=== PATIENT | female | born 1930 ===

== ENCOUNTER 2017-01-09 11:06 | Emergency (ER) | payer MEDICAID ==
[2017-01-09 11:29] VITALS: BMI 26.6
[2017-01-09] MEDS ORDERED: Iohexol 240 (50 ml) PO ONE (12:06)
[2017-01-09 12:38] LABS: BASO % 0.2 % (0.0-2.0); EOS # 0.1 K/uL (0.0-0.7); EOS % 1.8 % (0.0-4.0); HEMATOCRIT 40.8 % (34.0-47.0); LYMPH # 1.4 K/uL (1.0-4.3); LYMPH % 25.9 % (20.0-40.0); MEAN CELL VOLUME 92.8 fl (81.0-99.0); MEAN CORPUSCULAR HGB CONC 33.4 g/dL (33.0-37.0); MEAN PLATELET VOLUME 7.7 fl (7.2-11.7); MONO # 0.5 K/uL (0.0-0.8); MONO % 8.5 % (0.0-10.0); NEUT # 3.5 K/uL (1.8-7.0); NEUT % 63.6 % (50.0-75.0); NRBC % 0.1 % (0.0-0.0); RED CELL DISTRIBUTION WIDTH 13.6 % (11.5-14.5); WHITE BLOOD COUNT 5.4 K/uL (4.8-10.8)
[2017-01-09 12:47] LABS: ALB/GLOB RATIO 1.2 (1.0-2.1); ALKALINE PHOSPHATASE 98 U/L (38-126); ALT/SGPT 36 U/L (9-52); AST/SGOT 38 U/L (14-36); BILIRUBIN,TOTAL 0.8 mg/dl (0.2-1.3); BLOOD UREA NITROGEN 16 mg/dl (7-17); CALCIUM 9.3 mg/dL (8.4-10.2); CARBON DIOXIDE 28 mmol/L (22-30); CHLORIDE 102 mmol/L (98-107); GFR AFRICAN-AMERICAN > 60; GLUCOSE,RANDOM 98 mg/dL (65-105); LIPASE 108 U/L (23-300); POTASSIUM 3.8 MMOL/L (3.6-5.0); SODIUM 144 mmol/l (132-148); TOTAL PROTEIN 7.3 G/DL (6.3-8.2)
[2017-01-09 12:49] LABS: RBC URINE 1 /hpf (0-3); URINE BILIRUBIN NEGATIVE (NEGATIVE); URINE BLOOD NEGATIVE (NEGATIVE); URINE COLOR YELLOW (YELLOW); URINE GLUCOSE (UA) NEG (Normal); URINE KETONE NEGATIVE (NEGATIVE); URINE LEUKOCYTE ESTERASE TRACE Leu/uL (Negative); URINE PROTEIN NEGATIVE (NEGATIVE); URINE UROBILINOGEN 0.2-1.0 mg/dL (0.2-1.0); WBC URINE < 1 /hpf (0-5)
--- NOTE | 2017-01-09 13:15 | ED PDOC ---
HPI: General Adult Time Seen by Provider: 01/09/17 11:29 Chief Complaint (Nursing): Abdominal Pain Chief Complaint (Provider): abdominal pain History Per: Patient History/Exam Limitations: no limitations Additional Complaint(s): 86yo female complaining of 3 months of abdominal pain sometimes on right, sometimes on left, with foul smelling urine. She has not been evaluated for it but has been taking Motrin to help with the pain. She also has back pain that radiates to the legs which is chronic for her. She has been sad due to the of her child a few months ago. Also [place]. Able to walk, no leg weakness, no saddle anesthesia, no incontinence, chest pain, or fever. 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 Past Medical History Vital Signs: Last Vital Signs Temp 98.1 F 01/09/17 19:32 Pulse 70 01/09/17 19:32 Resp 18 01/09/17 19:32 BP 126/70 01/09/17 19:32 Pulse Ox 98 01/09/17 19:50 - Family History Family History: States: No Known Family Hx - Home Medications Home Medications: Ambulatory Orders Medication Instructions Recorded Acetaminophen [Tylenol Extra 1,000 mg PO TID #16 tablet 01/09/17 Strength] Nitrofurantoin Macrocrystals 100 mg PO BID #10 cap 01/09/17 [Macrobid] - Allergies Allergies/Adverse Reactions: Allergies Allergy/AdvReac Type Severity Reaction Status Date / Time No Known Allergies Allergy Verified 01/09/17 11:29 Review of Systems ROS Statement: Except As Marked, All Systems Reviewed And Found Negative Constitutional: Negative for: Fever Cardiovascular: Negative for: Chest Pain Gastrointestinal: Positive for: Abdominal Pain Genitourinary Female: Positive for: Other (foul urine). Negative for: Dysuria, Incontinence Musculoskeletal: Positive for: Back Pain Physical Exam - Reviewed Nursing Documentation Reviewed: Yes Vital Signs Reviewed: Yes - Physical Exam Appears: Positive for: Well, Non-toxic, No Acute Distress Head Exam: Positive for: ATRAUMATIC, NORMAL INSPECTION, NORMOCEPHALIC Skin: Positive for: Warm, Dry Eye Exam: Positive for: EOMI, PERRL Cardiovascular/Chest: Positive for: Regular Rate, Rhythm Respiratory: Positive for: Normal Breath Sounds. Negative for: Rales, Rhonchi, Wheezing Gastrointestinal/Abdominal: Positive for: Soft, Tenderness (diffuse abdominal) Pelvic Exam: Positive for: External Exam Normal, Speculum Exam Normal. Negative for: Blood, Lesions, Mass, Other (no discharge; Nano RN in for exam) Back: Positive for: R CVA Tenderness. Negative for: L CVA Tenderness Extremity: Positive for: Normal ROM Neurologic/Psych: Positive for: Alert, Oriented. Negative for: Motor/Sensory Deficits - Laboratory Results Result Diagrams: 01/09/17 12:30 01/09/17 12:30 - ECG ECG: Positive for: Interpreted By Me, Viewed By Me ECG Rhythm: Positive for: Normal QRS, Normal ST Segment, Sinus Rhythm (72). Negative for: ST/T Changes O2 Sat by Pulse Oximetry: 98 (RA) Pulse Ox Interpretation: Normal Medical Decision Making Medical Decision Makin Impression: rule out pyelonephritis, diverticulitis, colitis. Plan: -EKG -CT abd/pel -labs -CXR -Tylenol -reassess EXAM: CT Abdomen and Pelvis With Intravenous Contrast. CLINICAL HISTORY: 86 years old, female; Pain; Abdominal pain; Localized; Right; Additional info: Abdominal pain, right TECHNIQUE: Axial computed tomography images of the abdomen and pelvis with intravenous contrast. This CT exam was performed using one or more of the following dose reduction techniques : automated exposure control, adjustment of the mA and/or kV according to patient size, and/ or use of iterative reconstruction technique. CONTRAST: 95 mL of fgkg718 administered intravenously. EXAM DATE/TIME: 01/09/2017 12:06 PM COMPARISON: No relevant prior studies available. FINDINGS: Lower thorax: Bibasilar atelectasis. Moderate sized hiatal hernia. ABDOMEN: Liver: Unremarkable. No mass. Gallbladder and bile ducts: Unremarkable. No calcified stones. No ductal dilation. Pancreas: Unremarkable. No mass. No ductal dilation. Spleen: Unremarkable. No splenomegaly. Adrenals: Unremarkable. No mass. Kidneys and ureters: Bilateral renal cysts. No hydronephrosis. Stomach and bowel: No bowel obstruction or inflammation. Duodenal diverticulum. No mucosal thickening. Appendix: Normal appendix. PELVIS: Bladder: Unremarkable. No mass. Reproductive: Unremarkable as visualized. ABDOMEN and PELVIS: Intraperitoneal space: Unremarkable. No free air. No significant fluid collection. Bones/joints: No acute fracture. No dislocation. Soft tissues: Unremarkable. Vasculature: Unremarkable. No abdominal aortic aneurysm. Lymph nodes: Unremarkable. No enlarged lymph nodes. IMPRESSION: No acute findings. Thank you for allowing us to participate in the care of your patient. Dictated and Authenticated by: Bubba Taylor MD 01/09/2017 6:09 PM Eastern Time ([place] & [place]) labs unremarkable UA negative, UC sent CT as above. she is feeling better discussed finding with her and daughter will treat for dysuria return information discussed, follow up discussed. Disposition - Clinical Impression Clinical Impression: Abdominal discomfort, Dysuria, Back pain - Patient ED Disposition Is Patient to be Admitted: No Counseled Patient/Family Regarding: Studies Performed, Diagnosis, Need For Followup, Rx Given - Disposition Referrals: [facility] [Outside] Disposition: Routine/Home Disposition Time: 19:20 Condition: IMPROVED Prescriptions: Nitrofurantoin Macrocrystals [Macrobid] 100 mg PO BID #10 cap Acetaminophen [Tylenol Extra Strength] 1,000 mg PO TID #16 tablet Instructions: Back Pain (ED), Dysuria (ED) Print Language: LUXEMBOURGER Additional Comments - Additional Comments Additional Comments: Scribe Attestation Documented by Igor Fonseca, acting as a scribe for Christopher Lagunas PA-C. Provider Scribe Attestation All medical record entries made by the Scribe were at my direction and personally dictated by me. I have reviewed the chart and agree that the record accurately reflects my personal performance of the history, physical exam, medical decision making, and the department course for this patient. I have also personally directed, reviewed, and agree with the discharge instructions and disposition.
[2017-01-09] MEDS ORDERED: Iohexol 240 (50 ml) ONE (14:47)
--- NOTE | 2017-01-09 15:33 | RAD ---
HISTORY: abodminal pain COMPARISON: No prior. TECHNIQUE: Chest PA and lateral FINDINGS: LUNGS: No active pulmonary disease. PLEURA: No significant pleural effusion identified. No pneumothorax apparent. CARDIOVASCULAR: Normal. OSSEOUS STRUCTURES: No significant abnormalities. VISUALIZED UPPER ABDOMEN: Normal. OTHER FINDINGS: None. IMPRESSION: No active disease.
[2017-01-09] MEDS ORDERED: Iohexol 300 100 ML IJ ONE (17:01)
[2017-01-09] MEDS ORDERED: Sodium Chloride 0.9% 50 ML IV ONE (17:01)
[2017-01-09 19:33] VITALS: BP 126/70; PULSE 70; RESP 18; TEMP 98.1
[2017-01-09 19:37] VITALS: O2SAT 98
--- NOTE | 2017-01-10 11:31 | CT ---
PROCEDURE: CT Abdomen and Pelvis with contrast HISTORY: Right abdominal pain COMPARISON: None. TECHNIQUE: Helical CT scan of the abdomen and pelvis was performed after intravenous administration of contrast. Oral contrast was administered. Coronal and sagittal reformatted images were obtained. Contrast dose: 95 cc Omnipaque 350 Radiation dose: Total exam DLP = 449.28 mGy-cm. FINDINGS: LOWER THORAX: There is bibasilar subsegmental atelectasis. LIVER: The liver is normal in size and there is homogeneous enhancement. No gross lesion or ductal dilatation. GALLBLADDER AND BILE DUCTS: There are no calcified gallstones. PANCREAS: The pancreas is normal in size and there is homogeneous enhancement. No gross lesion or ductal dilatation. SPLEEN: The spleen is normal in size without focal lesion. ADRENALS: Both adrenal glands are normal in size without discrete nodule. No mass. KIDNEYS AND URETERS: Both kidneys are normal in size and there is homogeneous enhancement without focal mass or hydronephrosis. There are small simple cysts in both kidneys. VASCULATURE: Normal in appearance. There atherosclerotic aortoiliac calcifications. There is no aortic aneurysm. BOWEL: The small bowel loops are normal in caliber. There is colonic diverticulosis without CT evidence for acute diverticulitis. APPENDIX: No inflammatory changes in the right lower quadrant. PERITONEUM: No free fluid. No free air. LYMPH NODES: No enlarged lymph nodes. BLADDER: Normal in appearance. REPRODUCTIVE: The uterus is surgically absent. BONES: No acute fracture. There is diffuse bone demineralization and degenerative disc disease at L5-S1 with a vacuum disc. OTHER FINDINGS: There is a moderate sliding hiatal hernia but IMPRESSION: No acute abdominal or pelvic abnormality. Moderate sliding hiatal hernia.
--- NOTE | 2017-01-11 08:08 | CARD ---
APPROVED REPORT EKG Measurement Heart [id number] MD [id number] <Conclusion> Normal sinus rhythm Normal ECG
== END 2017-01-09 19:33 | disposition home or self-care (01) ==
LOC: H.ER 11:06
DX: R10.9 Unspecified abdominal pain (principal); M54.9 Dorsalgia, unspecified; R30.0 Dysuria
CPT/HCPCS: 71020; 74177; 80053; 81003; 83605; 83690; 84484; 85025; 87086; 99283; Q9966; Q9967

== ENCOUNTER 2017-09-27 12:06 | Emergency (ER) | payer MEDICAID ==
[2017-09-27 12:06] VITALS: BMI 26.6
[2017-09-27 12:20] VITALS: BP 163/73; PULSE 88; RESP 18; TEMP 98.5; O2SAT 97
[2017-09-27 14:32] LABS: BASO % 0.4 % (0.0-2.0); EOS # 0.1 K/uL (0.0-0.7); EOS % 0.8 % (0.0-4.0); HEMATOCRIT 41.1 % (34.0-47.0); LYMPH # 1.4 K/uL (1.0-4.3); MEAN CELL VOLUME 93.5 fl (81.0-99.0); MEAN CORPUSCULAR HGB CONC 33.1 g/dL (33.0-37.0); MEAN PLATELET VOLUME 7.7 fl (7.2-11.7); MONO # 0.5 K/uL (0.0-0.8); MONO % 7.4 % (0.0-10.0); NEUT % 71.4 % (50.0-75.0); RED CELL DISTRIBUTION WIDTH 13.3 % (11.5-14.5); WHITE BLOOD COUNT 7.1 K/uL (4.8-10.8)
[2017-09-27 14:45] LABS: ALB/GLOB RATIO 1.4 (1.0-2.1); ALKALINE PHOSPHATASE 91 U/L (38-126); ALT/SGPT 34 U/L (9-52); AST/SGOT 21 U/L (14-36); BILIRUBIN,TOTAL 0.5 mg/dl (0.2-1.3); BLOOD UREA NITROGEN 22 mg/dl (7-17); CARBON DIOXIDE 27 mmol/L (22-30); CHLORIDE 105 mmol/L (98-107); GFR AFRICAN-AMERICAN > 60; GLUCOSE,RANDOM 133 mg/dL (65-105); POTASSIUM 3.8 MMOL/L (3.6-5.0); SODIUM 138 mmol/l (132-148); TOTAL PROTEIN 7.6 G/DL (6.3-8.2)
--- NOTE | 2017-09-27 15:37 | ED PDOC ---
Lower Extremity Pain/Injury Time Seen by Provider: 09/27/17 13:32 Chief Complaint (Nursing): Lower Extremity Problem/Injury Chief Complaint (Provider): Wound, left lower leg History Per: Patient, Family History/Exam Limitations: no limitations Onset/Duration Of Symptoms: Days Current Symptoms Are (Timing): Still Present Severity: Mild Pain Scale Rating Of: 2 Additional Complaint(s): Pt repoerts cutting leg 2 weeks ago and states area is tender and not healing well. No fever/chills. No drainage. Past Medical History Reviewed: Historical Data, Nursing Documentation, Vital Signs Vital Signs: Last Vital Signs Temp 98.5 F 09/27/17 12:10 Pulse 88 09/27/17 12:10 Resp 18 09/27/17 12:10 BP 163/73 H 09/27/17 12:10 Pulse Ox 97 09/27/17 12:10 - Medical History PMH: Diabetes, HTN - Surgical History Surgical History: No Surg Hx - Family History Family History: States: Unknown Family Hx - Living Arrangements Living Arrangements: With Family - Social History Current smoker - smoking cessation education provided: No Alcohol: None Drugs: Denies - Immunization History Hx Tetanus Toxoid Vaccination: No Hx Influenza Vaccination: No Hx Pneumococcal Vaccination: No - Home Medications Home Medications: Ambulatory Orders Medication Instructions Recorded Acetaminophen [Tylenol Extra 1,000 mg PO TID #16 tablet 01/09/17 Strength] Nitrofurantoin Macrocrystals 100 mg PO BID #10 cap 01/09/17 [Macrobid] Meclizine [Meclizine*] 25 mg PO Q6 #30 tab 04/05/17 Bacitracin Ointment [Bacitracin] 30 gm TOP BID #1 tube 09/27/17 Cephalexin [Keflex] 500 mg PO BID #20 capsule 09/27/17 - Allergies Allergies/Adverse Reactions: Allergies Allergy/AdvReac Type Severity Reaction Status Date / Time No Known Allergies Allergy Verified 01/09/17 11:29 Review of Systems ROS Statement: Except As Marked, All Systems Reviewed And Found Negative Constitutional: Negative for: Fever, Chills Gastrointestinal: Negative for: Nausea, Vomiting Skin: Positive for: Lesions Physical Exam - Reviewed Nursing Documentation Reviewed: Yes Vital Signs Reviewed: Yes - Physical Exam Appears: Positive for: Well, Non-toxic, No Acute Distress Head Exam: Positive for: ATRAUMATIC, NORMAL INSPECTION, NORMOCEPHALIC Skin: Positive for: Warm. Negative for: Normal Color ((+) 2 cm healing round lesion, left lower anterior leg, localized erythema approx 1 cm surrounding) Eye Exam: Positive for: Normal appearance ENT: Positive for: Normal ENT Inspection Neck: Positive for: Normal, Painless ROM Cardiovascular/Chest: Positive for: Regular Rate, Rhythm Respiratory: Positive for: CNT, Normal Breath Sounds Back: Positive for: Normal Inspection Extremity: Positive for: Normal ROM Neurologic/Psych: Positive for: Alert, Oriented - Laboratory Results Result Diagrams: 09/27/17 14:29 09/27/17 14:29 - ECG O2 Sat by Pulse Oximetry: 97 Disposition - Clinical Impression Clinical Impression: Wound of lower extremity - Patient ED Disposition Is Patient to be Admitted: No Counseled Patient/Family Regarding: Diagnosis, Need For Followup, Rx Given - Disposition Referrals: [facility] [Outside] [facility] [Outside] [facility] [Outside] Disposition: Routine/Home Disposition Time: 15:35 Condition: GOOD Prescriptions: Bacitracin Ointment [Bacitracin] 30 gm TOP BID #1 tube Cephalexin [Keflex] 500 mg PO BID #20 capsule Instructions: Chronic Wound Care (ED)
== END 2017-09-27 15:58 | disposition home or self-care (01) ==
LOC: H.ER 12:06
DX: S81.802A Unspecified open wound, left lower leg, initial encounter (principal); Y92.89 Other specified places as the place of occurrence of the external cause; E11.9 Type 2 diabetes mellitus without complications; I10 Essential (primary) hypertension

== ENCOUNTER 2018-09-30 17:36 | Emergency (ER) | payer MEDICAID ==
[2018-09-30 17:47] VITALS: BP 147/86; PULSE 79; RESP 16; TEMP 98.1; O2SAT 96; BMI 29.8
[2018-09-30] MEDS ORDERED: Sodium Chloride 0.9% 500 ML IV STA (18:15)
--- NOTE | 2018-09-30 18:20 | ED PDOC ---
Upper Extremity Pain/Injury Time Seen by Provider: 09/30/18 17:56 Chief Complaint (Nursing): Upper Extremity Problem/Injury Chief Complaint (Provider): Upper Extremity Problem/Injury History Per: Patient History/Exam Limitations: no limitations Onset/Duration Of Symptoms: Days (x14) Current Symptoms Are (Timing): Still Present Additional Complaint(s): Lidia Rodriguez is an 87 year old female with a past medical history of hypertension, diabetes, and osteoporosis who is presenting to the ED for evaluation of right hand pain onset 2 weeks ago after fall associated with dizziness. Daughter states that patient also fell 6 months ago after feeling dizzy and hit the back of her head. She was taken to the hospital at the time and studies were conducted with no critical findings. Patient states that she has been feeling dizzy intermittently since then and 2 weeks ago fell due to dizziness and hit her right hand and arm, but denies any head injury. She also states that she stumbled into a door the day before this fall and hurt her left arm. She states that she had a headache after the fall but it has resolved since then. Patient denies any nausea, vomiting, diarrhea, chest pain, shortness of breath, abdominal pain, or back pain. No numbness, tingles. PMD: Sandy Kolb Past Medical History Reviewed: Historical Data, Nursing Documentation, Vital Signs Vital Signs: Last Vital Signs Temp 98.1 F 09/30/18 17:46 Pulse 79 09/30/18 17:46 Resp 16 09/30/18 17:46 BP 147/86 09/30/18 17:46 Pulse Ox 96 09/30/18 17:46 - Medical History PMH: Diabetes, HTN Other PMH: osteoporosis - Surgical History Other surgeries: left knee surgery - Family History Family History: States: Unknown Family Hx - Social History Current smoker - smoking cessation education provided: No Alcohol: None Drugs: Denies - Immunization History Hx Tetanus Toxoid Vaccination: No Hx Influenza Vaccination: No Hx Pneumococcal Vaccination: No - Home Medications Home Medications: Ambulatory Orders Medication Instructions Recorded Acetaminophen [Tylenol Extra 1,000 mg PO TID #16 tablet 01/09/17 Strength] Nitrofurantoin Macrocrystals 100 mg PO BID #10 cap 01/09/17 [Macrobid] Meclizine [Meclizine*] 25 mg PO Q6 #30 tab 04/05/17 Bacitracin Ointment [Bacitracin] 30 gm TOP BID #1 tube 09/27/17 Cephalexin [Keflex] 500 mg PO BID #20 capsule 09/27/17 - Allergies Allergies/Adverse Reactions: Allergies Allergy/AdvReac Type Severity Reaction Status Date / Time No Known Allergies Allergy Verified 09/30/18 17:54 Review of Systems ROS Statement: Except As Marked, All Systems Reviewed And Found Negative Cardiovascular: Negative for: Chest Pain Respiratory: Negative for: Shortness of Breath Gastrointestinal: Negative for: Nausea, Vomiting, Abdominal Pain, Diarrhea Musculoskeletal: Positive for: Arm Pain, Hand Pain. Negative for: Back Pain Neurological: Positive for: Headache (resolved now), Dizziness Physical Exam - Reviewed Nursing Documentation Reviewed: Yes Vital Signs Reviewed: Yes - Physical Exam Appears: Positive for: Non-toxic, No Acute Distress Head Exam: Positive for: ATRAUMATIC (no hematomas noted), NORMAL INSPECTION, NORMOCEPHALIC Skin: Positive for: Normal Color, Warm, Dry Eye Exam: Positive for: EOMI, Normal appearance, PERRL ENT: Positive for: Normal ENT Inspection. Negative for: Other (no septal hematoma) Neck: Positive for: Normal, Painless ROM, Supple Cardiovascular/Chest: Positive for: Regular Rate, Rhythm, Chest Non Tender. Negative for: Murmur Respiratory: Positive for: Normal Breath Sounds. Negative for: Respiratory Distress Pulses-Radial (L): 2+ Pulses-Radial (R): 2+ Gastrointestinal/Abdominal: Positive for: Normal Exam, Soft. Negative for: Tenderness Back: Positive for: Normal Inspection, Other (shoulders are non-tender with full ROM). Negative for: L CVA Tenderness, R CVA Tenderness, Vertebral Tenderness Extremity: Positive for: Normal ROM (full ROM of legs with no hip tenderness or ecchymosis ), Swelling (swelling and tenderness to distal 1/3 forearm, wrist and hand - full ROM with pain ), Other ((+) ecchymsosis to left lower lateral bicept and elbow area with mild tenderness and skin hypertrophy on lateral asp ect: non tender with no induration, fluctuance, or erythema ). Negative for: Pedal Edema, Deformity Neurologic/Psych: Positive for: Alert, Oriented. Negative for: Motor/Sensory Deficits - Laboratory Results Result Diagrams: 09/30/18 19:00 09/30/18 19:00 Interpretation Of Abn Labs: no acute - ECG ECG: Positive for: Interpreted By Me, Viewed By Me ECG Rhythm: Positive for: Normal QRS, Normal ST Segment, Sinus Rhythm O2 Sat by Pulse Oximetry: 96 (RA) Pulse Ox Interpretation: Normal - Radiology X-Ray: Interpreted by Me, Viewed By Me X-Ray Interpretation: Fracture (distal radius) - CT Scan/US ct Other Rad Studies (CT/US): Read By Radiologist Other Rad Interpretation: no acute - Progress ED Course And Treament: 2040: Pt. stable. AAOx3. Pain free. Tolerated PO. Ambulated with no issues. Not dizzy. Fu with Dr. Kolb and ortho. Spoke with Dr. Boateng. Wants splvikash and fu. He reviewed x-rays on text. Medical Decision Making Medical Decision Making: Time: 18:12 Plan: --CT Head --EKG --CMP --Troponin --CBC --Coags --X-Ray forearm BI --IV Fluids --X-Ray Left elbow --X-Ray right hand --X-Ray right wrist Scribe Attestation: Documented by, Pamela Valdez acting as a scribe for Steven Dominguez MD. Provider Scribe Attestation: All medical record entries made by the Scribe were at my direction and personally dictated by me. I have reviewed the chart and agree that the record accurately reflects my personal performance of the history, physical exam, medical decision making, and the department course for this patient. I have also personally directed, reviewed, and agree with the discharge instructions and disposition. Procedures - Splinting Location: R wrist Hand-Made Type: fiberglass Splint: radial gutter Pre-Proc Neuro Vasc Exam: normal Post-Proc Neuro Vasc Exam: normal Disposition - Clinical Impression Clinical Impression: Dizziness - Patient ED Disposition Is Patient to be Admitted: No Counseled Patient/Family Regarding: Studies Performed, Diagnosis, Need For Followup - Disposition Referrals: [facility] [Outside] - 10/02/18 Jorge Boateng III, MD [Staff Provider] - 10/02/18 Sandy Kolb [Staff Provider] - 10/02/18 Disposition: Routine/Home Disposition Time: 20:44 Condition: STABLE Additional Instructions: Return if not better in 3 days. See the orthopedic doctor in 3 days without fail. Regreso si no mejor en 3 esparza. Consulte al [place] ortopdico en 3 esparza sin falta. Instructions: Dizziness, Nonvertigo, (DC), Radius Fracture Forms: [facility] (Lao) Print Language: [place] CITIZEN
[2018-09-30 19:04] LABS: BASO % 0.5 % (0.0-2.0); EOS # 0.2 K/uL (0.0-0.7); EOS % 3.2 % (0.0-4.0); HEMOGLOBIN 12.4 g/dL (12.0-16.0); LYMPH # 1.6 K/uL (1.0-4.3); LYMPH % 32.8 % (20.0-40.0); MEAN CELL VOLUME 94.4 fl (81.0-99.0); MEAN CORPUSCULAR HEMOGLOBIN 31.7 pg (27.0-31.0); MEAN CORPUSCULAR HGB CONC 33.6 g/dL (33.0-37.0); MEAN PLATELET VOLUME 7.2 fl (7.2-11.7); MONO # 0.5 K/uL (0.0-0.8); MONO % 9.5 % (0.0-10.0); NEUT # 2.6 K/uL (1.8-7.0); NRBC % 0.1 % (0.0-0.0); RBC 3.91 Mil/uL (3.80-5.20); RED CELL DISTRIBUTION WIDTH 14.8 % (11.5-14.5); WHITE BLOOD COUNT 4.8 K/uL (4.8-10.8)
[2018-09-30 19:16] LABS: ALB/GLOB RATIO 1.1 (1.0-2.1); ALBUMIN 3.6 g/dL (3.5-5.0); ALT/SGPT 30 U/L (9-52); AST/SGOT 29 U/L (14-36); BLOOD UREA NITROGEN 17 mg/dl (7-17); CALCIUM 8.6 mg/dL (8.4-10.2); GFR NON-AFRICAN AMERICAN > 60
[2018-09-30 19:22] LABS: PROTHROMBIN TIME 11.4 Seconds (9.8-13.1)
[2018-09-30 19:25] LABS: PARTIAL THROMBOPLASTIN TIME 29.4 Seconds (25.6-37.1)
--- NOTE | 2018-10-01 08:34 | RAD ---
PROCEDURE: Right Hand Radiographs. HISTORY: injury COMPARISON: None. FINDINGS: BONES: There is impacted fracture with dorsal angulation of the distal major fracture fragment at the distal right radius compatible with Colles fracture. No fractures appreciated throughout the right hand with diffuse osteopenia suggesting osteoporosis. Degenerative cortical sclerosis is appreciated throughout the joints of the right hand diffusely. JOINTS: As above. SOFT TISSUES: Limited local soft tissue edema identified. OTHER FINDINGS: None. IMPRESSION: Colles fracture distal right radius. Ulnar styloid appears intact. See separate description in right wrist radiographs also performed 09/30/2018. No fracture of the right hand or dislocation.
--- NOTE | 2018-10-01 08:34 | RAD ---
Date of service: 09/30/2018 PROCEDURE: Right Wrist Radiographs. HISTORY: injury COMPARISON: None. FINDINGS: BONES: There is impacted fracture with dorsal angulation of the distal major fracture fragment at the distal right radius compatible with Colles fracture. No carpal bone fracture or dislocation in the right wrist. No destructive bony lesion appreciable grossly. Diffuse degenerative changes seen throughout the carpal joints. Diffuse osteopenia suggests osteoporosis. The ulnar styloid appears intact. JOINTS: As above. SOFT TISSUES: Limited local soft tissue edema identified. OTHER FINDINGS: None. IMPRESSION: Colles fracture distal right radius with sparing of the ulnar styloid. No dislocation. Carpal bones appear intact diffusely.
--- NOTE | 2018-10-01 08:35 | RAD ---
Date of service: 09/30/2018 PROCEDURE: Radiographs of the left elbow. HISTORY: injury COMPARISON: No prior. FINDINGS: BONES: No acute fracture or destructive bony lesion identified. Diffuse osteopenia suggests osteoporosis. JOINTS: Degenerative cortical sclerosis appreciate the articulations of the left elbow without subluxation or dislocation. SOFT TISSUES: Normal. JOINT EFFUSION: None. OTHER FINDINGS: None IMPRESSION: No acute fracture dislocation left elbow. Diffuse osteopenia suggests osteoporosis.
--- NOTE | 2018-10-01 08:36 | RAD ---
PROCEDURE: Radiographs of the Right Forearm HISTORY: injury COMPARISON: None available. TECHNIQUE: Frontal and lateral views obtained. FINDINGS: BONES: Colles fracture distal right radius, described separately in wrist and hand radiographs also performed 09/30/2018. Diffuse osteopenia suggests osteoporosis. No additional fracture throughout the ulnar or radius right forearm. JOINT SPACES: Unremarkable. OTHER FINDINGS: Limited local soft tissue edema is seen at the distal radial fracture site. IMPRESSION: Colles fracture distal right radius. Right ulna nonfocal. Diffuse osteopenia suggests osteoporosis.
--- NOTE | 2018-10-01 14:39 | CT ---
Date of service: 09/30/2018 PROCEDURE: CT HEAD WITHOUT CONTRAST. HISTORY: headache COMPARISON: Noncontrast head CT 01/09/2010. TECHNIQUE: Axial computed tomography images were obtained through the head/brain without intravenous contrast. Radiation dose: Total exam DLP = 751.63 mGy-cm. This CT exam was performed using one or more of the following dose reduction techniques: Automated exposure control, adjustment of the mA and/or kV according to patient size, and/or use of iterative reconstruction technique. FINDINGS: HEMORRHAGE: No intracranial hemorrhage. BRAIN: Good corticomedullary differentiation is seen. Reiterated diffuse cerebral atrophy and chronic microangiopathy. No suspicious extra-axial fluid collection is identified and the midline brain anatomy appears grossly nonfocal as imaged. No mass effect identified. VENTRICLES: Unremarkable. No hydrocephalus. CALVARIUM: Unremarkable. PARANASAL SINUSES: Chronic inspissated mucoid material is noted at the right sphenoid and at a posterior left ethmoid air cell including likely sinoliths. MASTOID AIR CELLS: Unremarkable as visualized. No inflammatory changes. OTHER FINDINGS: None. IMPRESSION: Age-related neuro degenerative changes are identified slightly increased in the interval. No acute interval change compared to prior CT dated 01/09/2010. Chronic sinus disease noted as discussed above. Concordant preliminary report from [facility], 09/30/2018, 7:43 p.m..
--- NOTE | 2018-10-01 18:59 | CARD ---
APPROVED REPORT Date of service: 09/30/2018 EKG Measurement Heart [id number] MA [id number] <Conclusion> Normal sinus rhythm Normal ECG
== END 2018-09-30 21:23 | disposition home or self-care (01) ==
LOC: H.ER 17:36
DX: S52.501A Unspecified fracture of the lower end of right radius, initial encounter for closed fracture (principal); R42 Dizziness and giddiness; W19.XXXA Unspecified fall, initial encounter